=== PATIENT | female | born 1950 | race Caucasian/White ===

== ENCOUNTER 2017-11-24 09:03 | Emergency (ER) | payer MEDICARE ==
[~2017-11-24] VITALS: Ht 165.1 cm; Wt 90.9 kg
[~2017-11-24 09:03] MED LIST: ALPR-624 PO; AMIT75TA48 PO; ASPI-1264 PO; ATEN50TA PO; CARI350T PO; FAMO40TA8 PO; GLYB-97 PO; HYDR12.522 PO; ISOS30TA9 PO; METF500T PO; NORCO10T PO; NPH,100V SQ; SIMV20TA5 PO
[2017-11-24 09:13] VITALS: BP 182/83
[2017-11-24] MEDS ORDERED: ondansetron 4mg rapidly disintigrating tab PO ONE (10:15)
[2017-11-24] MEDS ORDERED: cyclobenzaprine 10mg tablet PO ONE (10:15)
[2017-11-24] MEDS ORDERED: morphine 5 MG/ML injection IV ONE (10:15)
[2017-11-24] MEDS ORDERED: morphine 4 MG/ML inj SYRINge IV ONE (11:00)
[2017-11-24] MEDS ORDERED: morphine 4 MG/ML inj SYRINge IM ONE (11:30)
[2017-11-24] MEDS ORDERED: LIDO700A32 TOP (12:41)
[2017-11-24] MEDS ORDERED: DICL100G15 TOP (12:41)
[2017-11-24] MEDS ORDERED: CYCL-1 PO (12:41)
== END 2017-11-24 13:07 | disposition home or self-care (01) ==
LOC: ER 09:03
DX: M54.42 Lumbago with sciatica, left side (principal); I10 Essential (primary) hypertension; E78.00 Pure hypercholesterolemia, unspecified; E11.9 Type 2 diabetes mellitus without complications; I25.2 Old myocardial infarction; Z79.82 Long term (current) use of aspirin
CPT/HCPCS: 72110; 73502; 96372; 96374; 99284; J2270; 99285

== ENCOUNTER 2017-12-06 13:11 | Emergency (ER) | payer MEDICARE ==
[~2017-12-06] VITALS: Ht 165.1 cm; Wt 90.9 kg
[~2017-12-06 13:11] MED LIST changes: +CYCL-1 PO; +DICL100G15 TOP; +LIDO700A32 TOP
[2017-12-06] MEDS ORDERED: ipratropium/albuterol 3ml nebule IH PRN (15:00)
[2017-12-06] MEDS ORDERED: predniSONE 20 mg tablet PO ONE (15:00)
[2017-12-06] MEDS ORDERED: HYDROmorphone 1 mg/ml syringe IM ONE (15:10)
[2017-12-06] MEDS ORDERED: HYDROmorphone inj. 0.5 MG/0.5 ML DISP.SYRIN ONE (15:15)
[2017-12-06] MEDS ORDERED: ondansetron 4mg rapidly disintigrating tab PO ONE (15:15)
[2017-12-06] MEDS ORDERED: HYDROmorphone inj. 0.5 MG/0.5 ML DISP.SYRIN IM ONE (15:25)
[2017-12-06] MEDS ORDERED: NAPR-56 PO (15:40)
[2017-12-06] MEDS ORDERED: CYCL-1 PO (15:40)
[2017-12-06] MEDS ORDERED: HYDR-3965 PO (15:40)
[2017-12-06 16:16] VITALS: BP 141/50
== END 2017-12-06 16:23 | disposition home or self-care (01) ==
LOC: ER 13:12
DX: M54.32 Sciatica, left side (principal); I10 Essential (primary) hypertension; G89.29 Other chronic pain; E11.9 Type 2 diabetes mellitus without complications; E78.00 Pure hypercholesterolemia, unspecified; I25.2 Old myocardial infarction; M19.90 Unspecified osteoarthritis, unspecified site; Z98.890 Other specified postprocedural states; Z79.82 Long term (current) use of aspirin; Z79.84 Long term (current) use of oral hypoglycemic drugs; Z79.899 Other long term (current) drug therapy
CPT/HCPCS: 99284; J1170; J7512